=== PATIENT | female | born 1970 | race Caucasian/White ===

== ENCOUNTER 2018-05-22 17:10 | Inpatient (IN) | payer OTHER ==
[2018-05-22 17:38] VITALS: BMI 27.4
--- NOTE | 2018-05-22 19:07 | HP ---
Admission [facility] Chief Complaint: Here for rehab admission for cocaine. Using cocaine for the last 10 years- before that was using marijuana. Uses about cocaine $50/day, smoking. Says she becomes anti-social when she smokes, almost paranoid but continues to smoke b/c she gets urges to use cocaine. Has had the longest period of not using in 2013 - when she was admitted here for rehab- stopped using for one year. Then met with friends who were using and pt restarted. Says uses marijuana occ and smokes 1ppd. Has h/o asthma with rare exacerbations- once a year. h/o insomnia- takes trazodone for sleeping Allergies/Adverse Reactions: Allergies Allergy/AdvReac Type Severity Reaction Status Date / Time Penicillins Allergy Verified 05/22/18 18:53 Exam Limitations: No Limitations - Ebola screening Have you traveled outside of the country in the last 21 days: No (N) Have you had contact with anyone from an Ebola affected area: No Have you been sick,other than usual withdrawal symptoms: No Do you have a fever: No - Review of Systems Constitutional: No Symptoms Reported EENT: reports: No Symptoms Reported Respiratory: reports: No Symptoms reported Cardiac: reports: No Symptoms Reported GI: reports: No Symptoms Reported : reports: No Symptoms Reported Musculoskeletal: reports: No Symptoms Reported Integumentary: reports: No Symptoms Reported Neuro: reports: No Symptoms reported Endocrine: reports: No Symptoms Reported Hematology: reports: No Symptoms Reported Psychiatric: reports: No Sypmtoms Reported Other Systems: Reviewed and Negative Patient History - Patient Medical History Hx Anemia: No Hx Asthma: Yes (Uses Proventil) Hx Chronic Obstructive Pulmonary Disease (COPD): No Hx Cancer: No Hx Cardiac Disorders: No Hx Congestive Heart Failure: No Hx Hypertension: No Hx Hypercholesterolemia: No Hx Pacemaker: No HX Cerebrovascular Accident: No Hx Seizures: No Hx Dementia: No Hx Diabetes: No Hx Gastrointestinal Disorders: No Hx Liver Disease: No Hx Genitourinary Disorders: No Hx Sexually Transmitted Disorders: No Hx Renal Disease (ESRD): No Hx Thyroid Disease: No Hx Human Immunodeficiency Virus (HIV): No (09/04 last tested) Hx Hepatitis C: No Hx Depression: No Hx Suicide Attempt: No Hx Bipolar Disorder: No Hx Schizophrenia: No - Patient Surgical History Past Surgical History: Yes Hx Neurologic Surgery: Yes (s/p surgery of fx c4,c5,c6 in 2004 at [facility] ) Hx Cataract Extraction: No Hx Cardiac Surgery: No Hx Lung Surgery: No Hx Breast Surgery: No Hx Breast Biopsy: No Hx Abdominal Surgery: No Hx Appendectomy: No Hx Cholecystectomy: No Hx Genitourinary Surgery: No Hx Section: No Hx Orthopedic Surgery: No Anesthesia Reaction: No - PPD History Date: 09/24/13 - Reproductive History Last Menstrual Period: 05/22/18 (pt states is starting with menses today) Patient : No - Smoking Cessation Smoking history: Current every day smoker Have you smoked in the past 12 months: Yes Aproximately how many cigarettes per day: 20 Cigars Per Day: 0 Hx Chewing Tobacco Use: No Initiated information on smoking cessation: Yes 'Breaking Loose' booklet given: 05/22/18 - Substance & Tx. History Hx Substance Use: Yes (cocaine $50/day) Substance Use Type: Cocaine Hx Substance Use Treatment: Yes (was in rehab here in 2013) - Substances Abused Crack Route: Smoking Frequency: Daily Amount used: $50-100 Age of first use: 37 Date of Last Use: 05/21/18 Family Disease History - Family Disease History Family Disease History: Diabetes: Mother, Heart Disease: Mother Admission Physical Exam BHS - Vital Signs Vital Signs: Vital Signs - 24 hr 05/22/18 17:36 Temperature 98.8 F Pulse Rate 77 Respiratory 18 Rate Blood Pressure 117/5 L - Physical General Appearance: Yes: Within Normal Limits HEENTM: Yes: Within Normal Limits, EOMI, Hearing grossly Normal, LISBETH, Pharynx Normal Respiratory: Yes: Within Normal Limits, Lungs Clear Neck: Yes: Within Normal Limits Breast: Yes: Breast Exam Deferred Cardiology: Yes: Within Normal Limits, Regular Rhythm, Regular Rate, S1, S2 Abdominal: Yes: Within Normal Limits, Normal Bowel Sounds, Non Tender, Protuberent Genitourinary: Yes: Within Normal Limits Back: Yes: Within Normal Limits Extremities: Yes: Within Normal Limits Neurological: Yes: Within Normal Limits Integumentary: Yes: Within Normal Limits Lymphatic: Yes: Within Normal Limits - Diagnostic (1) Asthma Current Visit: Yes Status: Chronic Qualifiers: Asthma severity: mild Asthma persistence: intermittent (2) Cocaine dependence Current Visit: Yes Status: Chronic Qualifiers: Substance use status: uncomplicated Qualified Code(s): F14.20 - Cocaine dependence, uncomplicated BHS Breath Alcohol Content Breath Alcohol Content: 0 Urine Pregancy Test - Result Urine Test Results: Negative- NO Line Present Urine Drug Screen - Results Drug Screen Negative: No Urine Drug Screen Results: THC-Marijuana, LOUISA-Cocaine Inpatient Rehab Admission - Initial Determination Are CD services needed?: Yes Free of communicable disease: Yes Not in need of hospitalization: Yes - Rehab Admission Criteria Previous failed treatment: Yes Poor recovery environment: Yes Comorbidities: Yes Lacks judgement: Yes Patient is meeting Inpatient Rehab admission criteria:: Yes
[2018-05-22] MEDS ORDERED: LOPERAMIDE HCL 2 MG CAPSULE PO PRN (19:25)
[2018-05-22] MEDS ORDERED: guaiFENesin/D-METHORPHAN HB 10 ML UNIT-DOSE CUPS PO PRN (19:25)
[2018-05-22] MEDS ORDERED: ACETAMINOPHEN 325 MG TABLET (FP) PO PRN (19:25)
[2018-05-22] MEDS ORDERED: MENTHOL/PHENOL 1 EACH UD MM PRN (19:25)
[2018-05-22] MEDS ORDERED: MAGNESIUM CITRATE 300 ML BOTTLE PO PRN (19:25)
[2018-05-22] MEDS ORDERED: MAG HYDROX/AL HYDROX/SIMETH 30 ML UNIT-DOSE CUP PO PRN (19:25)
[2018-05-22] MEDS ORDERED: MAGNESIUM HYDROX 2400MG/30ML ORAL SUSPENSION 30 ML CUP PO PRN (19:25)
[2018-05-22] MEDS ORDERED: diphenhydrAMINE HCL 25 MG CAPSULE (FP) PO PRN (19:29)
[2018-05-22] MEDS: MELATONIN 5 MG TABLETS PO PRN (21:39)
[2018-05-22] MEDS: THIAMINE HCL 100 MG TABLET (FP) PO SCH (21:41)
[2018-05-22 23:49] LABS: URINE APPEARANCE CLEAR; URINE BILIRUBIN NEGATIVE (<2.0 mg/dL); URINE COLOR STRAW; URINE GLUCOSE (UA) NEGATIVE (NEGATIVE); URINE KETONE NEGATIVE (NEGATIVE); URINE LEUK ESTERASE 2+ (NEGATIVE); URINE NITRITE NEGATIVE (NEGATIVE); URINE PROTEIN NEGATIVE (NEGATIVE); URINE UROBILINOGEN NEGATIVE mg/dL (0.2-1.0)
[2018-05-23 01:17] LABS: EPI CELLS FEW /HPF (FEW); URINE BACTERIA RARE /hpf (NONE SEEN); URINE MUCUS RARE
--- NOTE | 2018-05-23 09:51 | HP ---
Psychiatrist Admission - Data Date of interview: 05/23/18 Admission source: [facility] Identifying data: This is the second admission to [address] [place] [address] for this 47 years old H mother of 6 grown children, [facility],supported by [facility]. Medical History: Significant for Cervical stenosis with surgical prcedures in 2006,BA. Psychiatric History: patient has no psychiatric history but admits some anxiety ,sleeping difficulties on and off.Patient was on Seroquel,Remeron,Trazodone.No previous psychiatric hospitalizations,no history of suicidal attempts. Physical/Sexual Abuse/Trauma History: patient denies Vital Signs: Vital Signs - 24 hr 05/22/18 05/22/18 05/23/18 17:36 22:15 00:30 Temperature 98.8 F Pulse Rate 77 83 Respiratory 18 18 18 Rate Blood Pressure 117/5 L 103/58 L 05/23/18 05/23/18 03:30 06:47 Temperature 97.9 F Pulse Rate 73 Respiratory 18 18 Rate Blood Pressure 117/71 Allergies/Adverse Reactions: Allergies Allergy/AdvReac Type Severity Reaction Status Date / Time Penicillins Allergy Verified 05/22/18 18:53 Date of last physical exam: 05/23/18 Concur with the findings of this exam: Yes - Substance Abuse/Tx History Hx Alcohol Use: Yes (repors drinking since her teens) Hx Substance Use: Yes (marijuana since 13 yo,crack/cocaine since 40 yo) Substance Use Type: Alcohol, Cocaine, Marijuana Hx Substance Use Treatment: Yes (completed this program in 2013) Mental Status Exam - Mental Status Exam Alert and Oriented to: Time, Place, Person Cognitive Function: Grossly Intact Patient Appearance: Unkempt Mood: Anxious, Irritable Affect: Labile Patient Behavior: Restless, Cooperative Speech Pattern: Clear Voice Loudness: Normal Thought Process: Goal Oriented Thought Disorder: Not Present Hallucinations: Denies Suicidal Ideation: Denies Homicidal Ideation: Denies Insight/Judgement: Fair Sleep: Fair Appetite: Good Muscle strength/Tone: Normal Gait/Station: Normal Psychiatric Findings - Problem List ([place] 1, 2,3) (1) Alcohol dependence Current Visit: Yes Status: Chronic (2) Asthma Current Visit: Yes Status: Chronic Qualifiers: Asthma severity: mild Asthma persistence: intermittent (3) Cannabis dependence Current Visit: Yes Status: Chronic (4) Cocaine dependence Current Visit: Yes Status: Chronic Qualifiers: Substance use status: uncomplicated Qualified Code(s): F14.20 - Cocaine dependence, uncomplicated (5) Substance induced mood disorder Current Visit: Yes Status: Chronic - Initial Treatment Plan Initial Treatment Plan: Trazodone 150 mg po hs.Will monitor progress.
[2018-05-23] MEDS: PRENATAL VITAMINS W/ FOLIC ACID TABLET (FP) PO SCH (10:02)
[2018-05-23 10:38] LABS: ALBUMIN 3.1 g/dl (3.4-5.0); ALK PHOS 68 U/L (45-117); ANION GAP 7 MMOL/L (8-16); BILIRUBIN,TOTAL 0.2 mg/dL (0.2-1); BLOOD UREA NITROGEN 11 mg/dL (7-18); CALCIUM 8.2 mg/dL (8.5-10.1); CHLORIDE 109 mmol/L (98-107); CO2 27 mmol/L (21-32); CREATININE 0.7 mg/dL (0.55-1.3); GLUCOSE,RANDOM 94 mg/dL (74-106); POTASSIUM 4.4 mmol/L (3.5-5.1); SGOT/AST 10 U/L (15-37); SGPT/ALT 15 U/L (13-61); SODIUM 142 mmol/L (136-145); TOT PROT 6.1 g/dl (6.4-8.2)
[2018-05-23 10:58] LABS: HEMOGLOBIN 13.7 GM/dL (10.7-15.3); MCH 30.7 pg (25.7-33.7); RBC 4.47 M/mm3 (3.60-5.2); WHITE BLOOD COUNT 7.5 K/mm3 (4.0-10.0)
[2018-05-23 11:02] LABS: HEMATOCRIT 42.3 % (32.4-45.2); MCHC 32.4 g/dl (32.0-36.0); MEAN CELL VOLUME 94.6 fl (80-96); MEAN PLT VOLUME 9.2 fl (7.5-11.1); PLATELET COUNT 266 K/MM3 (134-434); RDW 13.8 % (11.6-15.6)
[2018-05-23] MEDS: NICOTINE 21 MG/24 HOURS TOPICAL PATCH TD SCH (11:19)
[2018-05-23] MEDS: hydrOXYzine PAMOATE 50 MG CAPSULE (FP) PO PRN ×2 (11:19→19:15)
--- NOTE | 2018-05-23 11:37 | EKG ---
Test Reason : Blood Pressure : / mmHG Vent. Rate : 070 BPM Atrial Rate : 070 BPM P-R Int : 142 ms QRS Dur : 076 ms QT Int : 402 ms P-R-T Axes : 036 045 035 degrees QTc Int : 434 ms SINUS RHYTHM WITH PREMATURE SUPRAVENTRICULAR COMPLEXES WHEN COMPARED WITH ECG OF 23-SEP-2013 00:32, PREMATURE SUPRAVENTRICULAR COMPLEXES ARE NOW PRESENT Confirmed by AMARJIT SMITH MD ([id number]) on 05/23/2018 11:36:35 AM Referred By: Confirmed By:AMARJIT SMITH MD
[2018-05-23] MEDS: THIAMINE HCL 100 MG TABLET (FP) PO SCH (21:38)
[2018-05-23] MEDS: diphenhydrAMINE HCL 50 MG CAPSULE PO PRN (21:38)
[2018-05-23] MEDS: traZODone HCL 50 MG TABLET (FP) PO SCH (21:39)
[2018-05-24] MEDS: NICOTINE 21 MG/24 HOURS TOPICAL PATCH TD SCH (09:58)
[2018-05-24] MEDS: PRENATAL VITAMINS W/ FOLIC ACID TABLET (FP) PO SCH (09:58)
[2018-05-24] MEDS: hydrOXYzine PAMOATE 50 MG CAPSULE (FP) PO PRN ×2 (09:59→15:40)
[2018-05-24] MEDS: NICOTINE POLACRILEX 4 MG GUM BUC PRN ×3 (10:00→21:37)
[2018-05-24] MEDS ORDERED: PT OWN MED DRAWER 7, Y5N ONE (15:39)
[2018-05-24] MEDS: THIAMINE HCL 100 MG TABLET (FP) PO SCH (21:36)
[2018-05-24] MEDS: traZODone HCL 50 MG TABLET (FP) PO SCH (21:36)
[2018-05-24] MEDS: diphenhydrAMINE HCL 50 MG CAPSULE PO PRN (21:36)
[2018-05-25] MEDS: IBUPROFEN 400 MG TABLET (FP) PO PRN (08:51)
[2018-05-25] MEDS: hydrOXYzine PAMOATE 50 MG CAPSULE (FP) PO PRN ×2 (10:01→15:51)
[2018-05-25] MEDS: PRENATAL VITAMINS W/ FOLIC ACID TABLET (FP) PO SCH (10:02)
[2018-05-25] MEDS: NICOTINE 21 MG/24 HOURS TOPICAL PATCH TD SCH (10:02)
[2018-05-25] MEDS: NICOTINE POLACRILEX 4 MG GUM BUC PRN (15:51)
[2018-05-25] MEDS: traZODone HCL 50 MG TABLET (FP) PO SCH (21:16)
[2018-05-25] MEDS: diphenhydrAMINE HCL 50 MG CAPSULE PO PRN (21:17)
[2018-05-25] MEDS: THIAMINE HCL 100 MG TABLET (FP) PO SCH (21:17)
[2018-05-26] MEDS: PRENATAL VITAMINS W/ FOLIC ACID TABLET (FP) PO SCH (10:22)
[2018-05-26] MEDS: NICOTINE 21 MG/24 HOURS TOPICAL PATCH TD SCH (10:22)
[2018-05-26] MEDS: hydrOXYzine PAMOATE 50 MG CAPSULE (FP) PO PRN ×2 (10:49→15:45)
[2018-05-26] MEDS ORDERED: ALBUTEROL SO4 8 GM HFA INHALER IH PRN (14:09)
[2018-05-26] MEDS ORDERED: ALBUTEROL SO4 0.083% IH SOL 2.5 MG/3 ML VIAL.NEB. NEB PRN (14:09)
--- NOTE | 2018-05-26 14:16 | PN ---
[facility] Progress Note Note: Vital Signs Temperature 97.7 F 05/26/18 06:39 Pulse Rate 83 05/26/18 06:39 Respiratory Rate 18 05/26/18 06:39 Blood Pressure 94/53 L 05/26/18 06:39 O2 Sat by Pulse Oximetry (%) Laboratory Last Values WBC 7.5 K/mm3 (4.0-10.0) 05/23/18 07:30 RBC 4.47 M/mm3 (3.60-5.2) 05/23/18 07:30 Hgb 13.7 GM/dL (10.7-15.3) 05/23/18 07:30 Hct 42.3 % (32.4-45.2) 05/23/18 07:30 MCV 94.6 fl (80-96) 05/23/18 07:30 MCH 30.7 pg (25.7-33.7) 05/23/18 07:30 MCHC 32.4 g/dl (32.0-36.0) 05/23/18 07:30 RDW 13.8 % (11.6-15.6) 05/23/18 07:30 Plt Count 266 K/MM3 (134-434) D 05/23/18 07:30 MPV 9.2 fl (7.5-11.1) 05/23/18 07:30 Sodium 142 mmol/L (136-145) 05/23/18 07:30 Potassium 4.4 mmol/L (3.5-5.1) 05/23/18 07:30 Chloride 109 mmol/L (98-107) H 05/23/18 07:30 Carbon Dioxide 27 mmol/L (21-32) 05/23/18 07:30 Anion Gap 7 MMOL/L (8-16) L 05/23/18 07:30 BUN 11 mg/dL (7-18) 05/23/18 07:30 Creatinine 0.7 mg/dL (0.55-1.3) 05/23/18 07:30 Creat Clearance w eGFR > 60 (>60) 05/23/18 07:30 Random Glucose 94 mg/dL (74-106) 05/23/18 07:30 Calcium 8.2 mg/dL (8.5-10.1) L 05/23/18 07:30 Total Bilirubin 0.2 mg/dL (0.2-1) 05/23/18 07:30 AST 10 U/L (15-37) L 05/23/18 07:30 ALT 15 U/L (13-61) 05/23/18 07:30 Alkaline Phosphatase 68 U/L (45-117) 05/23/18 07:30 Total Protein 6.1 g/dl (6.4-8.2) L 05/23/18 07:30 Albumin 3.1 g/dl (3.4-5.0) L 05/23/18 07:30 Urine Color Straw 05/22/18 21:04 Urine Appearance Clear 05/22/18 21:04 Urine pH 7.0 (5.0-8.0) 05/22/18 21:04 Ur Specific Vincent 1.008 (1.010-1.035) L 05/22/18 21:04 Urine Protein Negative (NEGATIVE) 05/22/18 21:04 Urine Glucose (UA) Negative (NEGATIVE) 05/22/18 21: Urine Ketones Negative (NEGATIVE) 05/22/18 21:04 Urine Blood Negative (NEGATIVE) 05/22/18 21:04 Urine Nitrite Negative (NEGATIVE) 05/22/18 21: Urine Bilirubin Negative (<2.0 mg/dL) 05/22/18 21: Urine Urobilinogen Negative mg/dL (0.2-1.0) 05/22/18 21:04 Ur Leukocyte Esterase 2+ (NEGATIVE) H 05/22/18 21:04 Urine WBC (Auto) 3 /hpf (3-5) 05/22/18 21:04 Urine RBC (Auto) <1 /hpf (0-3) 05/22/18 21:04 Ur Epithelial Cells Few /HPF (FEW) 05/22/18 21:04 Urine Bacteria Rare /hpf (NONE SEEN) 05/22/18 21: Urine Mucus Rare 05/22/18 21:04 RPR Titer Nonreactive (NONREACTIVE) 05/23/18 07:30 c/o of hx of asthma, nasal congestion, sore throat. Aox3 no distress EENT WNL + rhinorrhea no adventitious breath sound s full ROM ambulating in the unit uri plan: tylenol prn flonase qd prn albuterol prn continue to monitor
[2018-05-26] MEDS: THIAMINE HCL 100 MG TABLET (FP) PO SCH (21:33)
[2018-05-26] MEDS: traZODone HCL 50 MG TABLET (FP) PO SCH (21:33)
[2018-05-26] MEDS: diphenhydrAMINE HCL 50 MG CAPSULE PO PRN (21:33)
[2018-05-26] MEDS: NICOTINE POLACRILEX 4 MG GUM BUC PRN (21:34)
[2018-05-26] MEDS ORDERED: PT OWN MED DRAWER 7, Y5N ONE (21:35)
[2018-05-27] MEDS: MELATONIN 5 MG TABLETS PO PRN ×2 (00:58→21:47)
[2018-05-27] MEDS: PRENATAL VITAMINS W/ FOLIC ACID TABLET (FP) PO SCH (10:40)
[2018-05-27] MEDS: NICOTINE 21 MG/24 HOURS TOPICAL PATCH TD SCH (10:40)
[2018-05-27] MEDS: hydrOXYzine PAMOATE 50 MG CAPSULE (FP) PO PRN ×3 (10:41→21:47)
[2018-05-27] MEDS: NICOTINE POLACRILEX 4 MG GUM BUC PRN (10:43)
[2018-05-27] MEDS: P-EPHED 60MG/TRIPROLIDI 2.5MG TABLET PO PRN (14:19)
[2018-05-27] MEDS: traZODone HCL 50 MG TABLET (FP) PO SCH (21:46)
[2018-05-27] MEDS: THIAMINE HCL 100 MG TABLET (FP) PO SCH (21:46)
[2018-05-28] MEDS: IBUPROFEN 400 MG TABLET (FP) PO PRN (08:39)
[2018-05-28] MEDS: hydrOXYzine PAMOATE 50 MG CAPSULE (FP) PO PRN ×3 (08:40→21:30)
[2018-05-28] MEDS: PRENATAL VITAMINS W/ FOLIC ACID TABLET (FP) PO SCH (09:45)
[2018-05-28] MEDS: NICOTINE 21 MG/24 HOURS TOPICAL PATCH TD SCH (09:45)
[2018-05-28] MEDS: P-EPHED 60MG/TRIPROLIDI 2.5MG TABLET PO PRN (13:39)
[2018-05-28] MEDS: NICOTINE POLACRILEX 4 MG GUM BUC PRN (13:40)
[2018-05-28] MEDS: FLUTICASONE PROP 0.05% 16 GM NASAL SPRAY NS SCH ×2 (14:47→21:35)
--- NOTE | 2018-05-28 15:33 | PN ---
Psychiatric Progress Note Vital Signs: Vital Signs Period Temp Pulse Resp BP Sys/Collins Pulse Ox Last 24 Hr 82 18-18 119/73 Date of Session: 05/28/18 Chief Complaint:: My sleep is still big problem,very interrupted sleep pattern. HPI: Alcohol,Cannabis,Cocaine dependence comorbid with Substance induced mood disorder. ROS: BA Current Medications: Active Medications Generic Name Dose Route Start Last Admin Trade Name Freq PRN Reason Stop Dose Admin Acetaminophen 650 mg 05/22/18 19:25 Tylenol - PO Q4H PRN FEVER Al Hydroxide/Mg Hydroxide 30 ml 05/22/18 19:25 Mylanta Oral Suspension - PO Q6H PRN DYSPEPSIA Albuterol Sulfate 1 amp 05/26/18 14:09 Ventolin 0.083% Nebulizer Soln - NEB Q4H PRN SHORT OF BREATH/WHEEZING Albuterol Sulfate 2 puff 05/26/18 14:09 05/27/18 10:42 Ventolin Hfa Inhaler - IH 2 puff Q4H PRN Administration SHORT OF BREATH/WHEEZING Diphenhydramine HCl 50 mg 05/23/18 10:12 05/26/18 21:33 Benadryl - PO 50 mg HS PRN Administration INSOMNIA Eucalyptus/Menthol/Phenol/Sorbitol 1 each 05/22/18 19:25 Cepastat Lozenge - MM Q4H PRN SORE THROAT Fluticasone Propionate 1 spray 05/28/18 13:45 05/28/18 14:47 Flonase - NS 1 sprays BID JOÃO Administration Guaifenesin 10 ml 05/22/18 19:25 Robitussin Dm - PO Q6H PRN COUGH Hydroxyzine Pamoate 50 mg 05/23/18 09:56 05/28/18 13:40 Vistaril - PO 50 mg Q4H PRN Administration ANXIETY Ibuprofen 400 mg 05/22/18 19:25 05/28/18 08:39 Motrin - PO 400 mg Q6H PRN Administration Pain level 4-6 Loperamide HCl 4 mg 05/22/18 19:25 Imodium - PO Q6H PRN DIARRHEA Magnesium Citrate 300 ml 05/22/18 19:25 05/25/18 12:48 Citroma - PO 300 ml Q48H PRN Administration CONSTIPATION Magnesium Hydroxide 30 ml 05/22/18 19:25 05/23/18 19:14 Milk Of Magnesia - PO 30 ml DAILY PRN Administration CONSTIPATION Melatonin 10 mg 05/28/18 15:24 Melatonin PO HS PRN INSOMNIA Mirtazapine 15 mg 05/28/18 22:00 Remeron - PO HS JOÃO Nicotine 21 mg 05/29/18 07:00 Nicoderm Patch - TD DAILY@0700 JOÃO Nicotine Polacrilex 4 mg 05/23/18 10:59 05/28/18 13:40 Nicorette Gum - BUC 4 mg Q2H PRN Administration NICOTINE REPLACEMENT RX Multivit/Folic Acid/Iron 1 tab 05/23/18 10:00 05/28/18 09:45 Vitamins (Sjr) - PO 1 tab DAILY JOÃO Administration Pseudoephedrine/Triprolidine 1 combo 05/22/18 19:25 05/28/18 13:39 Actifed - PO 1 combo TID PRN Administration NASAL CONGESTION Thiamine HCl 100 mg 05/22/18 22:00 05/27/18 21:46 Vitamin B1 - PO 100 mg HS JOÃO Administration Trazodone HCl 200 mg 05/28/18 15:24 Desyrel - PO HS JOÃO Current Side Effect: No Lab tests ordered: No Lab tests reviewed: Yes Provider note:: Chart was revuewed,patient was seen in my office to address ongoing sleeping difficulties,anxiety,mood instability.Properties of Remeron has been discussed with the patient including side effects,benefits,dose adjustment.Melatonin 5 mg po hs will be adjusted to 10 mg po hs,Trazodone 150 mg po hs will be adjussted to 200 mg po hs,Vistarol 50 mg po q 4 hrs prn will be adjusted to 100 mg po tid prn for anxiety.Sleep improving techniques has been discussed with the patient as well as relaxation techniques. Supportive therapy provided. Total face to face time:: 35 Mental Status Exam - Mental Status Exam Alert and Oriented to: Time, Place, Person Cognitive Function: Grossly Intact Patient Appearance: Unkempt Mood: Sad, Anxious Affect: Labile Patient Behavior: Cooperative Speech Pattern: Clear Voice Loudness: Normal Thought Process: Goal Oriented Thought Disorder: Not Present Hallucinations: Denies Suicidal Ideation: Denies Homicidal Ideation: Denies Insight/Judgement: Fair Sleep: Fair Appetite: Fair Muscle strength/Tone: Normal Gait/Station: Normal Psychiatric Treatment Plan - Problem List (1) Alcohol dependence Current Visit: Yes (2) Asthma Current Visit: Yes Qualifiers: Asthma severity: mild Asthma persistence: intermittent (3) Cannabis dependence Current Visit: Yes (4) Cocaine dependence Current Visit: Yes Qualifiers: Substance use status: uncomplicated Qualified Code(s): F14.20 - Cocaine dependence, uncomplicated (5) Substance induced mood disorder Current Visit: Yes
[2018-05-28] MEDS: THIAMINE HCL 100 MG TABLET (FP) PO SCH (21:30)
[2018-05-28] MEDS: MELATONIN 5 MG TABLETS PO PRN (21:31)
[2018-05-28] MEDS: traZODone HCL 100 MG TABLET (FP) PO SCH (21:33)
[2018-05-28] MEDS: MIRTAZAPINE 15 MG TABLET (FP) PO SCH (21:33)
[2018-05-28] MEDS ORDERED: PT OWN MED DRAWER 7, Y5N ONE (21:34)
[2018-05-29] MEDS: NICOTINE 21 MG/24 HOURS TOPICAL PATCH TD SCH (07:34)
[2018-05-29] MEDS ORDERED: PT OWN MED DRAWER 7, Y5N ONE (08:44)
[2018-05-29] MEDS: FLUTICASONE PROP 0.05% 16 GM NASAL SPRAY NS SCH ×2 (10:27→21:33)
[2018-05-29] MEDS: PRENATAL VITAMINS W/ FOLIC ACID TABLET (FP) PO SCH (10:27)
[2018-05-29] MEDS: hydrOXYzine PAMOATE 50 MG CAPSULE (FP) PO PRN ×2 (10:28→21:32)
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
[2018-05-29] MEDS: GABAPENTIN 300 MG CAPSULE (FP) PO SCH ×2 (12:52→21:32)
[2018-05-29] MEDS: NICOTINE POLACRILEX 4 MG GUM BUC PRN (12:53)
[2018-05-29] MEDS: traZODone HCL 100 MG TABLET (FP) PO SCH (21:31)
[2018-05-29] MEDS: MIRTAZAPINE 15 MG TABLET (FP) PO SCH (21:31)
[2018-05-29] MEDS: THIAMINE HCL 100 MG TABLET (FP) PO SCH (21:31)
[2018-05-30] MEDS: NICOTINE POLACRILEX 4 MG GUM BUC PRN (06:42)
[2018-05-30] MEDS: hydrOXYzine PAMOATE 50 MG CAPSULE (FP) PO PRN ×3 (06:43→21:28)
[2018-05-30] MEDS: NICOTINE 21 MG/24 HOURS TOPICAL PATCH TD SCH (07:28)
[2018-05-30] MEDS: GABAPENTIN 300 MG CAPSULE (FP) PO SCH ×2 (10:24→21:27)
[2018-05-30] MEDS ORDERED: PT OWN MED DRAWER 7, Y5N ONE (10:24)
[2018-05-30] MEDS: FLUTICASONE PROP 0.05% 16 GM NASAL SPRAY NS SCH ×2 (10:24→21:29)
[2018-05-30] MEDS: PRENATAL VITAMINS W/ FOLIC ACID TABLET (FP) PO SCH (10:24)
[2018-05-30] MEDS: P-EPHED 60MG/TRIPROLIDI 2.5MG TABLET PO PRN (10:26)
[2018-05-30] MEDS: traZODone HCL 100 MG TABLET (FP) PO SCH (21:27)
[2018-05-30] MEDS: MIRTAZAPINE 15 MG TABLET (FP) PO SCH (21:27)
[2018-05-30] MEDS: THIAMINE HCL 100 MG TABLET (FP) PO SCH (21:27)
[2018-05-30] MEDS: MELATONIN 5 MG TABLETS PO PRN (21:28)
[2018-05-30] MEDS: diphenhydrAMINE HCL 50 MG CAPSULE PO PRN (23:51)
[2018-05-31] MEDS: hydrOXYzine PAMOATE 50 MG CAPSULE (FP) PO PRN ×3 (04:12→21:35)
[2018-05-31] MEDS: NICOTINE 21 MG/24 HOURS TOPICAL PATCH TD SCH (07:06)
[2018-05-31] MEDS: FLUTICASONE PROP 0.05% 16 GM NASAL SPRAY NS SCH ×2 (10:28→22:54)
[2018-05-31] MEDS: GABAPENTIN 300 MG CAPSULE (FP) PO SCH ×2 (10:29→21:34)
[2018-05-31] MEDS: PRENATAL VITAMINS W/ FOLIC ACID TABLET (FP) PO SCH (10:29)
[2018-05-31] MEDS: P-EPHED 60MG/TRIPROLIDI 2.5MG TABLET PO PRN ×2 (10:30→22:48)
[2018-05-31] MEDS: THIAMINE HCL 100 MG TABLET (FP) PO SCH (21:34)
[2018-05-31] MEDS: MIRTAZAPINE 15 MG TABLET (FP) PO SCH (21:34)
[2018-05-31] MEDS: traZODone HCL 100 MG TABLET (FP) PO SCH (21:34)
[2018-06-01] MEDS: NICOTINE 21 MG/24 HOURS TOPICAL PATCH TD SCH (06:19)
[2018-06-01] MEDS: PRENATAL VITAMINS W/ FOLIC ACID TABLET (FP) PO SCH (10:14)
[2018-06-01] MEDS: GABAPENTIN 300 MG CAPSULE (FP) PO SCH ×2 (10:14→21:46)
[2018-06-01] MEDS: FLUTICASONE PROP 0.05% 16 GM NASAL SPRAY NS SCH ×2 (10:15→21:46)
[2018-06-01] MEDS: hydrOXYzine PAMOATE 50 MG CAPSULE (FP) PO PRN (10:15)
[2018-06-01] MEDS: P-EPHED 60MG/TRIPROLIDI 2.5MG TABLET PO PRN (12:44)
[2018-06-01] MEDS: traZODone HCL 100 MG TABLET (FP) PO SCH (21:46)
[2018-06-01] MEDS: MIRTAZAPINE 15 MG TABLET (FP) PO SCH (21:46)
[2018-06-01] MEDS: THIAMINE HCL 100 MG TABLET (FP) PO SCH (21:46)
[2018-06-01] MEDS: MELATONIN 5 MG TABLETS PO PRN (21:48)
[2018-06-02] MEDS: P-EPHED 60MG/TRIPROLIDI 2.5MG TABLET PO PRN ×2 (01:24→12:29)
[2018-06-02] MEDS: diphenhydrAMINE HCL 50 MG CAPSULE PO PRN (01:24)
[2018-06-02] MEDS: NICOTINE 21 MG/24 HOURS TOPICAL PATCH TD SCH (06:46)
[2018-06-02] MEDS: FLUTICASONE PROP 0.05% 16 GM NASAL SPRAY NS SCH ×2 (10:10→21:12)
[2018-06-02] MEDS: PRENATAL VITAMINS W/ FOLIC ACID TABLET (FP) PO SCH (10:10)
[2018-06-02] MEDS: GABAPENTIN 300 MG CAPSULE (FP) PO SCH ×2 (10:10→21:11)
[2018-06-02] MEDS: hydrOXYzine PAMOATE 50 MG CAPSULE (FP) PO PRN ×2 (10:11→16:29)
--- NOTE | 2018-06-02 11:53 | PN ---
Psychiatric Progress Note Vital Signs: Vital Signs Period Temp Pulse Resp BP Sys/Collins Pulse Ox Last 24 Hr 97 F-98.1 F 64-98 16-18 112-130/59-73 Date of Session: 06/02/18 Chief Complaint:: Discharge visit HPI: Alcohol,Cannabis,Cocaine dependence comorbid with Substance induced mood disorder. ROS: BA Current Medications: Active Medications Generic Name Dose Route Start Last Admin Trade Name Freq PRN Reason Stop Dose Admin Acetaminophen 650 mg 05/22/18 19:25 05/29/18 08:57 Tylenol - PO 650 mg Q4H PRN Administration FEVER Al Hydroxide/Mg Hydroxide 30 ml 05/22/18 19:25 Mylanta Oral Suspension - PO Q6H PRN DYSPEPSIA Albuterol Sulfate 1 amp 05/26/18 14:09 Ventolin 0.083% Nebulizer Soln - NEB Q4H PRN SHORT OF BREATH/WHEEZING Albuterol Sulfate 2 puff 05/26/18 14:09 05/27/18 10:42 Ventolin Hfa Inhaler - IH 2 puff Q4H PRN Administration SHORT OF BREATH/WHEEZING Diphenhydramine HCl 50 mg 05/28/18 15:47 06/02/18 01:24 Benadryl - PO 50 mg HS PRN Administration INSOMNIA Eucalyptus/Menthol/Phenol/Sorbitol 1 each 05/22/18 19:25 Cepastat Lozenge - MM Q4H PRN SORE THROAT Fluticasone Propionate 1 spray 05/28/18 13:45 06/02/18 10:10 Flonase - NS 1 sprays BID JOÃO Administration Gabapentin 300 mg 05/29/18 12:00 06/02/18 10:10 Neurontin - PO 300 mg BID JOÃO Administration Guaifenesin 10 ml 05/22/18 19:25 Robitussin Dm - PO Q6H PRN COUGH Hydroxyzine Pamoate 100 mg 05/28/18 15:47 06/02/18 10:11 Vistaril - PO 100 mg TID PRN Administration ANXIETY Ibuprofen 400 mg 05/22/18 19:25 05/28/18 08:39 Motrin - PO 400 mg Q6H PRN Administration Pain level 4-6 Loperamide HCl 4 mg 05/22/18 19:25 Imodium - PO Q6H PRN DIARRHEA Magnesium Citrate 300 ml 05/22/18 19:25 05/25/18 12:48 Citroma - PO 300 ml Q48H PRN Administration CONSTIPATION Magnesium Hydroxide 30 ml 05/22/18 19:25 05/23/18 19:14 Milk Of Magnesia - PO 30 ml DAILY PRN Administration CONSTIPATION Melatonin 10 mg 05/28/18 15:24 06/01/18 21:48 Melatonin PO 10 mg HS PRN Administration INSOMNIA Mirtazapine 15 mg 05/28/18 22:00 06/01/18 21:46 Remeron - PO 15 mg HS JOÃO Administration Nicotine 21 mg 05/29/18 07:00 06/02/18 06:46 Nicoderm Patch - TD 21 mg DAILY@0700 JOÃO Administration Nicotine Polacrilex 4 mg 05/23/18 10:59 05/30/18 06:42 Nicorette Gum - BUC 4 mg Q2H PRN Administration NICOTINE REPLACEMENT RX Multivit/Folic Acid/Iron 1 tab 05/23/18 10:00 06/02/18 10:10 Vitamins (Sjr) - PO 1 tab DAILY JOÃO Administration Pseudoephedrine/Triprolidine 1 combo 05/22/18 19:25 06/02/18 01:24 Actifed - PO 1 combo TID PRN Administration NASAL CONGESTION Thiamine HCl 100 mg 05/22/18 22:00 06/01/18 21:46 Vitamin B1 - PO 100 mg HS JOÃO Administration Trazodone HCl 200 mg 05/28/18 22:00 06/01/18 21:46 Desyrel - PO 200 mg HS JOÃO Administration Current Side Effect: No Lab tests ordered: No Lab tests reviewed: Yes Provider note:: Patient will complete this program tomorrow 06/03/18.She has met her treatment goals and will continue to address her issues on outpatient basis.She will continue current medications as per plan.scripots for 30 days supply provided. Supportiv ethrapy provided foscusing on relapse prevention. Patoent is stable for discharge tomorrow 06/03/18. Total face to face time:: 30 Mental Status Exam - Mental Status Exam Alert and Oriented to: Time, Place, Person Cognitive Function: Grossly Intact Patient Appearance: Well Groomed Mood: Hopeful, Euthymic Affect: Appropriate Patient Behavior: Cooperative Speech Pattern: Clear Voice Loudness: Normal Thought Process: Goal Oriented Thought Disorder: Not Present Hallucinations: Denies Suicidal Ideation: Denies Homicidal Ideation: Denies Insight/Judgement: Fair Sleep: Fair Appetite: Good Muscle strength/Tone: Normal Gait/Station: Normal Psychiatric Treatment Plan - Problem List (1) Alcohol dependence Current Visit: Yes (2) Asthma Current Visit: Yes Qualifiers: Asthma severity: mild Asthma persistence: intermittent (3) Cannabis dependence Current Visit: Yes (4) Cocaine dependence Current Visit: Yes Qualifiers: Substance use status: uncomplicated Qualified Code(s): F14.20 - Cocaine dependence, uncomplicated (5) Substance induced mood disorder Current Visit: Yes
[2018-06-02] MEDS ORDERED: SUVOREXANT 10 MG TABLET PO PRN (16:03)
[2018-06-02] MEDS: MELATONIN 5 MG TABLETS PO PRN (21:10)
[2018-06-02] MEDS: MIRTAZAPINE 15 MG TABLET (FP) PO SCH (21:11)
[2018-06-02] MEDS: THIAMINE HCL 100 MG TABLET (FP) PO SCH (21:11)
[2018-06-02] MEDS: traZODone HCL 100 MG TABLET (FP) PO SCH (21:11)
[2018-06-03] MEDS: hydrOXYzine PAMOATE 50 MG CAPSULE (FP) PO PRN (00:53)
[2018-06-03] MEDS: NICOTINE 21 MG/24 HOURS TOPICAL PATCH TD SCH (06:59)
[2018-06-03 07:05] VITALS: BP 119/70; PULSE 100; TEMP 97.6
== END 2018-06-03 09:20 | disposition home or self-care (01) | DRG 772 ==
LOC: YASAS 17:10 → Y3E 19:03
PROVIDERS: ADMIT Psychiatry & Neurology Psychiatry; ATTEND Psychiatry & Neurology Psychiatry
PROC: HZ42ZZZ Group Counseling for Substance Abuse Treatment, Cognitive-Behavioral (ICD-10-PCS; principal; 2018-05-22)
DX: F10.20 Alcohol dependence, uncomplicated (principal); F14.20 Cocaine dependence, uncomplicated; F12.20 Cannabis dependence, uncomplicated; F17.210 Nicotine dependence, cigarettes, uncomplicated; F19.24 Other psychoactive substance dependence with psychoactive substance-induced mood disorder; J45.20 Mild intermittent asthma, uncomplicated; M54.41 Lumbago with sciatica, right side; J06.9 Acute upper respiratory infection, unspecified; Z88.0 Allergy status to penicillin
CPT/HCPCS: 36415; 80053; 81003; 81015; 85027; 86593; 93005; 93010